=== PATIENT | female | born 1995 | race American Indian/Alaskan Native ===

== ENCOUNTER 2022-11-30 20:15 | Inpatient (IN) | payer MEDICAID, OTHER, SELFPAY ==
[2022-11-30] MEDS: OXYTOCIN 10 UNIT/ML VIAL IM (20:42)
--- NOTE | 2022-11-30 20:42 | PC.NURSE ---
Family of patient called back on red phone stating there was a medical emergency in the bathroom. This RN and HEALTH INFORMATION SYSTEMS TECHNICIAN went out to bathroom and found patient on toilet holding . Blood saturating the floor and patient, with weak cries in patient's arms. Asked mom if she caught baby, stated no, asked if baby landed in toilet, stated no, it landed on the floor. Stated that she was unaware she was . This RN took infant from patient, noted that umbilical cord was detached from mom, immediately applied direct pressure with fingers to umbilical cord that was bleeding. Handed infant to another RN who applied vigorous stimulation while provider maintained pressure to umbilical cord. Transferred patient into [facility] in the bathroom and moved to RM 1. Provider was present in bathroom and initially went with to RM 10 but then met patient and this RN in RM 1. Provider immediately assessed patient's bleeding. L&D nurse arrived to RM 1 to assist. Immediately started 18g in right AC. L&D nursed gave 10mg IM pitocin in left thigh, and additional 30mg 500ML bag running to gravity upon departure to L&D. Cord transferred via biohazard bag to L&D.
[2022-11-30] MEDS: OXYTOCIN PREMIX 30 UNIT/500 ML PLAST..BAG 999 UNIT IV (20:45)
--- NOTE | 2022-11-30 20:45 | ED.GENADULT ---
HPI - General Adult General Stated complaint: Thought constipated, Laxatives, Pain Time Seen by Provider: 11/30/22 20:44 Source: patient Mode of arrival: Ambulatory Limitations: no limitations History of Present Illness HPI narrative: Patient is a 27-year-old female who initially presented to the emergency department complaining of constipation. Prior to my evaluation I was called to the waiting room for an ?emergency? in the restroom. When I arrived found the patient sitting on the toilet. She would just given to a baby girl. Patient stated that she did not know that she was . My initial focus was on the baby and during this time the patient was brought back to the emergency department by nursing staff. HPI was very limited on this patient other than she has had no care. After she was stabilized and the placenta was delivered she was transported to labor and delivery. Review of Systems Gastrointestinal Gastrointestinal: Reports system reviewed and no additional complaints, except as documented Genitourinary Genitourinary: Reports system reviewed and no additional complaints, except as documented Exam Initial Vital Signs Initial Vital Signs: Vital Signs Pulse Rate 140 H 11/30/22 22:39 Blood Pressure 117/70 11/30/22 22:39 Const General: cooperative and No ill appearing HENMT Head: normal to inspection and normocephalic Resp Effort & Inspection: normal respiratory effort Other: Patient was having quite a bit bleeding and passage of clots from the vagina. There was no umbilical cord visualized so a manual exam was performed. I was able to grab a hold of a small part of the placenta and just provided some easy pressure while the patient pushed. An intact placenta was delivered. Fundal massage was started. Bleeding improved very quickly. Skin General: no rashes or lesions noted Neuro General: patient alert and patient awake Course Orders Ordered: Acetaminophen (Acetaminophen 325 Mg Tablet) 650 mg PO Q4H PRN PRN Reason: Fever/Mild Pain (1-3) Carboprost Tromethamine (Carboprost 250 Mcg/Ml Ampul) 250 mcg IM Q90MIN PRN PRN Reason: Bleeding Tranexamic Acid 1,000 mg/ (Sodium Chloride) 100 mls @ 200 mls/hr IV NOW PRN PRN Reason: Bleeding Oxytocin/Lactated Ringer's (Oxytocin Premix) 30 unit in 500 mls @ 200 mls/hr IV CONT PRN; Protocol PRN Reason: Bleeding Ampicillin Sodium/Sulbactam (Sodium 3 gm/ Sodium Chloride) 100 mls @ 200 mls/hr IV Q6H ANGELITO Lidocaine HCl (Lidocaine 2% (Glydo) 6 Ml Gel) 6 ml TOP NOW ONE Stop: 12/01/22 00:38 Methylergonovine Maleate (Methylergonovine 0.2 Mg/Ml Vial) 0.2 mg IM NOW PRN PRN Reason: Bleeding Methylergonovine Maleate (Methylergonovine 0.2 Mg Tablet) 0.2 mg PO Q6HR PRN PRN Reason: Heavy bleeding Misoprostol (Misoprostol 200 Mcg Tablet) 400 mcg SL NOW PRN PRN Reason: Bleeding Misoprostol (Misoprostol 200 Mcg Tablet) 1,000 mcg MO NOW PRN PRN Reason: Bleeding Misoprostol (Misoprostol 200 Mcg Tablet) 800 mcg MO NOW PRN PRN Reason: Bleeding Naloxone HCl (Naloxone 0.4 Mg/Ml Vial) 0.2 mg IV Q2MIN PRN PRN Reason: Opiate Reversal Oxytocin (Oxytocin 10 Unit/Ml Vial) 10 unit IM NOW PRN PRN Reason: Bleeding Rho Immune Globulin (Rho(D) Immune Globulin 1,500 Unit Syringe) 1,500 unit IM NOW PRN PRN Reason: Mom Rh neg, Infant Rh pos Discontinued Medications Diphtheria/Tetanus/Acell Pertussis (Tet,Diph,Pertuss(Acell),Vac/Pf 0.5 Ml Syringe) 0.5 ml IM .ONCE ONE Stop: 11/30/22 22:22 Measles/Mumps/Rubella Vaccine Live (Measles,Mumps,Rubella Vacc/Pf 0.5 Ml Vial) 0.5 ml SUBCUT .ONCE ONE Stop: 11/30/22 22:22 Medical Decision Making Lab Data 11/30/22 23:02 11/30/22 23:02 Labs: Lab Results 11/30/22 11/30/22 11/30/22 Range/Units 20:35 20:35 21:00 WBC 20.7 H (4.5-11.0) X10^3/uL RBC 4.19 (4.0-5.2) X10^6/uL Hgb 10.0 L (12.0-16.0) g/dL Hct 32.1 L (36-46) % MCV 76.7 L (80-100) fL MCH 23.9 L (26-34) PG MCHC 31.1 (30-36) % RDW 18.7 H (11.6-14.8) % Plt Count 306 (150-400) X10^3/uL Neut % (Auto) 83.5 H (50-75) % Lymph % (Auto) 12.6 L (25-40) % [place] % (Auto) 3.3 (3-14) % Eos % (Auto) 0.1 L (2-4) % Baso % (Auto) 0.5 (0-2) % Neut # (Auto) 48616 H (0516-7391) /uL Lymph # (Auto) 2600 (3500-9552) /uL [place] # (Auto) 700 (0-900) /uL Eos # (Auto) 0 (0-450) /uL Baso # (Auto) 100 (0-100) /uL Sodium 135 L (137-145) mmol/L Potassium 3.9 (3.4-5.1) mmol/L Chloride 106 (98-107) mmol/L Carbon Dioxide 23 (22-32) mmol/L BUN 9 (7-17) mg/dL Creatinine 0.89 (0.52-1.04) mg/dL Estimated GFR > 60 (>60) mL/min BUN/Creatinine Ratio 10.1 (6-22) Glucose 105 H (70-100) mg/dL Calcium 7.5 L (8.4-10.2) mg/dL Total Bilirubin 0.1 L (0.2-1.3) mg/dL AST 32 (14-36) IU/L ALT 20 (<35) IU/L Alkaline Phosphatase 242 H (38-126) U/L Total Protein 7.1 (6.3-8.2) g/dL Albumin 3.1 L (3.5-5.0) g/dL Globulin 4.0 (1.7-4.1) g/dL Albumin/Globulin Ratio 0.8 L (1.0-2.8) Group B Strep (PCR) Neg for grp b strep Blood Type Cancelled O Positive Antibody Screen Negative Crossmatch See Detail MDM Narrative Medical decision making narrative: Patient did deliver the baby in the waiting room bathroom. It appears she is not had any care. She stated that she did not know that she was . The placenta was delivered in the emergency department and appears to be intact. She was given 10 mg of IM Pitocin in the ER. Her bleeding did seem to improve. Labor and delivery staff was in the emergency department. IV was started and labs were obtained however the patient was transferred to labor and delivery prior to any lab results. I did discuss the case with Dr. Janice KOCH on-call however this was after she was transferred and after he had evaluated her. Discharge Plan Departure Patient Disposition: Admitted As Inpatient Clinical Impression: Admit Date/Time: 11/30/22 21:04 Admit Provider: Michael Camacho
[2022-11-30] MEDS: LACTATED RINGERS 1,000 ML 1000 ML IV (21:20)
--- NOTE | 2022-11-30 22:15 | PM.OBHP.1 ---
OB HPI Date/Time Date of admission: 11/30/22 Date Patient Seen: 11/30/22 Time Patient Seen: 20:40 History of Present Condition Chief complaint: Thought constipated, Laxatives, Pain : 1 Para: 1 Estimated Gestational Age (weeks): 34 Narrative: Sayda Arriaga is a 27 year old female Comments: Patient presented to emergency department this evening complaining of constipation. She went to the bathroom at which time she delivered a baby which struck the floor. At time of delivery the cord avulsed the nurse upon seeing this put pressure on the cord. The placenta spontaneously delivered in the emergency department. At that point she was transferred to labor and delivery. Patient has had no OB care. She thinks her last episode of sex was in March. However this is somewhat difficult in that she is already to a female and this is been very distressing to both of them. The rupture of membranes was undocumented. She felt poorly since yesterday and presented to the ED at the encouragement of her friends. Patient denies any headaches. She denies any contractions. Upon arriving to labor and delivery she notes the pain of 2/10. Indications Indication for induction OB: other (Patient has had no OB care. She is had no ultrasounds. She states that she did not know she was .) History of Present care: none Ultrasounds: none Obstetrical complications: other (Baby was estimated at 34 weeks this makes her a delivery.) Preadmission Labs -: Antibody screen: unknown, Cystic fibrosis screen: unknown, GBS status: unknown, HBsAG: unknown, HIV: unknown, HSV 1: unknown, HSV 2: unknown and RPR/VDLR: unknown Prior (ies) History: none PFSH Comment: Past medical history none Surgical history none Family history is positive for preeclampsia with the mother Social history: Patient has her which she is been with for the last 10 years. Patient denies any intercourse initially but admits to sex probably in March. OB Exam Vital signs Blood Pressure: 117/70 Pulse Rate: 140 Eyes General: appearance normal, both eyes and all related structures Resp Effort & Inspection: normal respiratory effort and able to speak in complete sentences Cardio Rate: regular rate Rhythm: regular rhythm Heart Sounds: S1 normal Extremities Lower extremity: Yes normal to inspection DTR's: Rt Patellar: 1+ and Lt Patellar: 1+ GI Palpation: Yes soft Auscultation: normal bowel sounds OB/External & Speculum: vulvar erythema Objective Labs 11/30/22 20:35 11/30/22 20:35 Assessment and Plan Assessment and Plan Assessment and Plan narrative: 27-year-old female with delivery in the ED with what appears to be 34 weeks. Estimated Blood at time of delivery is 1400 cc. This qualifies as hemorrhage. Foul smelling amniotic fluid suspect chorioamnionitis. We will start patient on Unasyn for 2 doses. Initial elevated blood pressure possibility of preeclampsia we will obtain PIH labs. Time Spent with Patient Total time spent with greater than 50% in coordination of care (as documented) at patient's floor/unit and/or counseling patient:: Greater than 35 minutes
[2022-11-30 22:18] LABS: Add Manual Diff / Slide Review NO; Alanine Aminotransferase 20 IU/L (<35); Albumin 3.1 g/dL (3.5-5.0); Albumin Globulin Ratio 0.8 (1.0-2.8); Alkaline Phosphatase 242 U/L (38-126); Aspartate Aminotransferase 32 IU/L (14-36); BUN Creatinine Ratio 10.1 (6-22); Basophils Absolute Auto 100 /uL (0-100); Basophils Percent Auto 0.5 % (0-2); Bilirubin Total 0.1 mg/dL (0.2-1.3); Blood Urea Nitrogen 9 mg/dL (7-17); Calcium 7.5 mg/dL (8.4-10.2); Carbon Dioxide 23 mmol/L (22-32); Chloride 106 mmol/L (98-107); Eosinophils Absolute Auto 0 /uL (0-450); Eosinophils Percent Auto 0.1 % (2-4); Estimated Glomerular Filt Rate > 60 mL/min (>60); Glucose 105 mg/dL (70-100); HEMOLYSIS < 15 (0-50); Hematocrit 32.1 % (36-46); Lymphocytes Absolute Auto 2600 /uL (1100-4500); Lymphocytes Percent Auto 12.6 % (25-40); Mean Corpuscular HGB Conc 31.1 % (30-36); Mean Corpuscular Hemoglobin 23.9 PG (26-34); Mean Corpuscular Volume 76.7 fL (80-100); Monocytes Absolute Auto 700 /uL (0-900); Monocytes Percent Auto 3.3 % (3-14); Neutrophils Absolute Auto 17300 /uL (1500-7000); Neutrophils Percent Auto 83.5 % (50-75); Platelet Count 306 X10^3/uL (150-400); Potassium 3.9 mmol/L (3.4-5.1); Red Blood Cell Count 4.19 X10^6/uL (4.0-5.2); Red Cell Distribution Width 18.7 % (11.6-14.8); Sodium 135 mmol/L (137-145); Total Protein 7.1 g/dL (6.3-8.2); White Blood Cell Count 20.7 X10^3/uL (4.5-11.0)
[2022-11-30] MEDS: LACTATED RINGERS 1,000 ML 100 ML IV (22:20)
[2022-11-30 22:21] VITALS: BP 147/67
[2022-11-30 22:39] VITALS: BP 117/70; PULSE 140
[2022-11-30 23:44] LABS: Aspartate Aminotransferase 27 IU/L (14-36); BUN Creatinine Ratio 10.2 (6-22); Blood Urea Nitrogen 10 mg/dL (7-17); Estimated Glomerular Filt Rate > 60 mL/min (>60)
[2022-11-30 23:49] LABS: Add Manual Diff / Slide Review NO; Basophils Absolute Auto 100 /uL (0-100); Basophils Percent Auto 0.5 % (0-2); Eosinophils Absolute Auto 0 /uL (0-450); Hematocrit 21.2 % (36-46); Lymphocytes Absolute Auto 1900 /uL (1100-4500); Lymphocytes Percent Auto 7.7 % (25-40); Mean Corpuscular HGB Conc 31.9 % (30-36); Mean Corpuscular Hemoglobin 24.2 PG (26-34); Monocytes Absolute Auto 1200 /uL (0-900); Monocytes Percent Auto 4.7 % (3-14); Neutrophils Absolute Auto 21200 /uL (1500-7000); Neutrophils Percent Auto 87.1 % (50-75); Platelet Count 287 X10^3/uL (150-400); Red Blood Cell Count 2.79 X10^6/uL (4.0-5.2); Red Cell Distribution Width 18.5 % (11.6-14.8); White Blood Cell Count 24.4 X10^3/uL (4.5-11.0)
[2022-12-01 00:01] LABS: Hemoglobin 6.8 g/dL (12.0-16.0)
[2022-12-01 00:27] VITALS: BP 144/75; PULSE 126; RESP 18; TEMP 36.5
[2022-12-01 00:28] LABS: Hepatitis B Surface Antigen NEGATIVE s/c (NEGATIVE)
[2022-12-01 00:29] LABS: Rubella Antibody IgG 0.3 IU/mL (>15)
[2022-12-01 00:35] LABS: Strep Grp B PCR NEG for Grp B Strep
[2022-12-01 00:37] LABS: HIV 1 & 2 Ab/Ag 4th Gen Combo NEGATIVE (NEGATIVE)
[2022-12-01 00:45] VITALS: BP 115/81; PULSE 127; RESP 20; TEMP 36.6
--- NOTE | 2022-12-01 00:48 | PC.NURSE ---
Report given to GHAZAL Hemphill. Patient resting on stretcher, vitals trending. Blood transfusing at 250mL/hr.
[2022-12-01] MEDS: ACETAMINOPHEN 325 MG TABLET 650 MG PO ×2 (01:55→13:24)
[2022-12-01 02:14] VITALS: BP 121/88; PULSE 113; RESP 17; TEMP 35.9
[2022-12-01 02:15] VITALS: BP 121/88; PULSE 113; RESP 17; TEMP 35.9
[2022-12-01] MEDS: AMPICILLIN/SULBACTAM 3 GM 3 GM in SODIUM CHLORIDE 0.9% 100 ML IV ×4 (02:23→19:51)
[2022-12-01 02:31] VITALS: BP 125/86; PULSE 102; RESP 17; TEMP 36.4
[2022-12-01 03:12] LABS: Creatinine Urine Random 226.3 mg/dL
[2022-12-01 03:21] LABS: Protein (Total) Urine Random 546 mg/dL (0-12); Protein Creatinine Ratio Urine 2.41 GRAM/24H
[2022-12-01 03:38] LABS: UR Morphine/Opiate cutoff 300 Negative (Negative); Ur Creatinine 50 (Normal); Ur Specific Gravity <1.030 (Normal); Urine Amphetamines Positive (Negative); Urine Barbiturates Negative (Negative); Urine Benzodiazepines Negative (Negative); Urine Cocaine Negative (Negative); Urine MDMA Negative (Negative); Urine Methadone Negative (Negative); Urine Methamphetamines Positive (Negative); Urine Oxycodone Negative (Negative); Urine Phencyclidine Negative (Negative); Urine Tetrahydrocannabinol Positive (Negative); Urine Tricyclic Antidepressant Negative (Negative); Urine pH 5 (Normal)
[2022-12-01 04:26] LABS: Urine N gonorrhoeae NOT DETECTED
[2022-12-01 04:27] LABS: Urine Chlamydia NOT DETECTED
[2022-12-01 06:11] LABS: Hemoglobin A1C% w Est Avg Glu 5.2 % (4.0-6.0)
--- NOTE | 2022-12-01 10:10 | P.PNOB_ITS ---
Subjective - OB Subjective Patient comments: no complaints (Patient states she would like to go home. At this point I discouraged it because she has endometritis she is had anemia with symptoms significant enough to require transfusion.) and pain well controlled (Patient states her pain is 5/10 hours she had to be awakened. When offered pain medication she declined it at this time.) Narrative: Infant is being transferred out because of concerns prematurity as well as possible drug withdrawal. Date Patient Seen: 12/01/22 Time Patient Seen: 10:12 Exam Vital Signs (past 8 hours): - 12/01/22 02:14 12/01/22 02:15 12/01/22 02:31 Temperature 96.7 F L 96.7 F L 97.5 F L Pulse Rate 113 H 113 H 102 H Respiratory Rate 17 17 17 Blood Pressure 121/88 121/88 125/86 Const General: cooperative, healthy appearing and comfortable HENMT Head: normal to inspection Eyes General: appearance normal, both eyes and all related structures Resp Effort & Inspection: normal respiratory effort and able to speak in complete sentences Auscultation: clear to auscultation bilaterally Cardio Palpation: normal PMI Rate: regular rate Rhythm: regular rhythm Heart Sounds: S1 normal and S2 normal GI Palpation: soft (Uterus is palpated at the umbilicus it is minimally tender at this time. ) and other Back/Spine/Pelvis Back: back tenderness (No CVA tenderness was elicited) Neuro General: patient alert and patient awake DTR's: Rt Patellar: 1+ (No clonusclonus) and Lt Patellar: 1+ Objective Labs 12/01/22 10:15 11/30/22 23:02 Labs: Laboratory Results - last 24 hr 11/30/22 11/30/22 11/30/22 20:35 20:35 21:00 WBC 20.7 H RBC 4.19 Hgb 10.0 L Hct 32.1 L MCV 76.7 L MCH 23.9 L MCHC 31.1 RDW 18.7 H Plt Count 306 Neut % (Auto) 83.5 H Lymph % (Auto) 12.6 L [place] % (Auto) 3.3 Eos % (Auto) 0.1 L Baso % (Auto) 0.5 Neut # (Auto) 54015 H Lymph # (Auto) 2600 [place] # (Auto) 700 Eos # (Auto) 0 Baso # (Auto) 100 Sodium 135 L Potassium 3.9 Chloride 106 Carbon Dioxide 23 BUN 9 Creatinine 0.89 Estimated GFR > 60 BUN/Creatinine Ratio 10.1 Glucose 105 H Hemoglobin A1c Uric Acid Calcium 7.5 L Total Bilirubin 0.1 L AST 32 ALT 20 Alkaline Phosphatase 242 H Total Protein 7.1 Albumin 3.1 L Globulin 4.0 Albumin/Globulin Ratio 0.8 L U Random Total Protein Urine Creatinine Protein/Creatinin Ratio U Opiates 300ng/mL cut Ur Oxycodone Screen Urine Methadone Screen Ur Barbiturates Screen U Tricyclic Antidepress Ur Phencyclidine Scrn Ur Amphetamines Screen U Methamphetamines Scrn Ur MDMA Scrn (Ecstasy) U Benzodiazepines Scrn Urine Cocaine Screen U Marijuana (THC) Screen Ur Chlamydia DNA (PCR) Hep Bs Antigen HIV 1&2 Ab/P24 Ag 4thGn Rubella Antibody Group B Strep (PCR) Neg for grp b strep N gonorrhoeae DNA (PCR) Blood Type Cancelled O Positive Antibody Screen Negative Crossmatch See Detail 11/30/22 12/01/22 23:02 02:14 WBC 24.4 H RBC 2.79 L Hgb 6.8 L* Hct 21.2 L MCV 76.0 L MCH 24.2 L MCHC 31.9 RDW 18.5 H Plt Count 287 Neut % (Auto) 87.1 H Lymph % (Auto) 7.7 L [place] % (Auto) 4.7 Eos % (Auto) 0.0 L Baso % (Auto) 0.5 Neut # (Auto) 23146 H Lymph # (Auto) 1900 [place] # (Auto) 1200 H Eos # (Auto) 0 Baso # (Auto) 100 Sodium Potassium Chloride Carbon Dioxide BUN 10 Creatinine 0.98 Estimated GFR > 60 BUN/Creatinine Ratio 10.2 Glucose Hemoglobin A1c 5.2 Uric Acid 7.0 H Calcium Total Bilirubin AST 27 ALT Alkaline Phosphatase Total Protein Albumin Globulin Albumin/Globulin Ratio U Random Total Protein 546 H Urine Creatinine 226.3 Protein/Creatinin Ratio 2.41 U Opiates 300ng/mL cut Negative Ur Oxycodone Screen Negative Urine Methadone Screen Negative Ur Barbiturates Screen Negative U Tricyclic Antidepress Negative Ur Phencyclidine Scrn Negative Ur Amphetamines Screen Positive H U Methamphetamines Scrn Positive H Ur MDMA Scrn (Ecstasy) Negative U Benzodiazepines Scrn Negative Urine Cocaine Screen Negative U Marijuana (THC) Screen Positive H Ur Chlamydia DNA (PCR) Not detected Hep Bs Antigen Negative HIV 1&2 Ab/P24 Ag 4thGn Negative Rubella Antibody 0.3 L Group B Strep (PCR) N gonorrhoeae DNA (PCR) Not detected Blood Type Antibody Screen Crossmatch Assessment & Plan Plan day: 1 Comments: 1. Premature delivery at 34 weeks. Because of complications the is being transferred out. 2. Amphetamine use. This could have explained the tachycardia she experienced yesterday. However she did drop her hemoglobin to 6.8 and had lightheadedness well standing. 3. hemorrhage. Her QBL was noted to be roughly 1800 cc. She had a tachycardia as well as being lightheaded whenever standing. For this reason she received 2 units of packed red blood cells. We will be obtaining a CBC to evaluate her blood count. Repeat CBC showed a white count in the 16,000 her hemoglobin had risen to 8.9 4. endomyometritis. Because of foul-smelling amniotic fluid as well as as well as no OB care it was elected to place her on Unasyn. Her white count indeed was initially 20,000 and increased to 24,000. We will await the CBC. We will complete 20 4 hours of Unasyn. 5. Methamphetamine use. Landscape Management Technician are involved. 6. possible preeclampsia. There is a family history of preeclampsia. Her initial blood pressure is 160 over 90s however these have normalized to 120s over 70s. Her initial protein creatinine ratio which was contaminated was high at 2 point 4 will repeat protein creatinine ratio to see if this is just factitious. Repeat urine protein creatinine ratio was 0.47. She is had some episodes of elevated diastolic pressures. She received a single dose of IV labetalol and her diastolics have normalized. 7. Patient would like to go home I have encouraged her to stay here because of her complexity need for antibiotics as well as monitor post transfusion. Time Spent With Patient Time: Total time spent is greater than 50% in coordination of care (as documented) at patient's floor/unit and/or counseling patient: Time with patient: less than 15 minutes
[2022-12-01 10:23] LABS: Add Manual Diff / Slide Review NO; Basophils Absolute Auto 100 /uL (0-100); Basophils Percent Auto 0.4 % (0-2); Eosinophils Absolute Auto 0 /uL (0-450); Eosinophils Percent Auto 0.3 % (2-4); Hematocrit 27.3 % (36-46); Hemoglobin 8.9 g/dL (12.0-16.0); Lymphocytes Absolute Auto 1800 /uL (1100-4500); Lymphocytes Percent Auto 10.9 % (25-40); Mean Corpuscular HGB Conc 32.7 % (30-36); Mean Corpuscular Hemoglobin 26.6 PG (26-34); Mean Corpuscular Volume 81.4 fL (80-100); Monocytes Absolute Auto 700 /uL (0-900); Monocytes Percent Auto 4.4 % (3-14); Neutrophils Absolute Auto 13700 /uL (1500-7000); Platelet Count 211 X10^3/uL (150-400); Red Blood Cell Count 3.36 X10^6/uL (4.0-5.2); Red Cell Distribution Width 20.2 % (11.6-14.8); White Blood Cell Count 16.3 X10^3/uL (4.5-11.0)
[2022-12-01 10:49] LABS: Creatinine Urine Random 48.9 mg/dL; Protein (Total) Urine Random 23 mg/dL (0-12); Protein Creatinine Ratio Urine 0.47 GRAM/24H
[2022-12-01 11:58] LABS: Anisocytosis 1+
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
[2022-12-01 13:17] VITALS: BP 136/106; PULSE 113
[2022-12-01] MEDS: LABETALOL 20 MG/4 ML SYRINGE 10 MG IV (13:17)
[2022-12-01] MEDS: LACTATED RINGERS 1,000 ML 100 ML IV (17:34)
[2022-12-02 04:24] LABS: RPR Screen Non Reactive (Non Reactive)
[2022-12-02 06:59] LABS: Basophils Absolute Auto 0 /uL (0-100); Basophils Percent Auto 0.3 % (0-2); Eosinophils Absolute Auto 100 /uL (0-450); Eosinophils Percent Auto 0.9 % (2-4); Hematocrit 25.1 % (36-46); Hemoglobin 8.2 g/dL (12.0-16.0); Lymphocytes Absolute Auto 1800 /uL (1100-4500); Lymphocytes Percent Auto 14.7 % (25-40); Mean Corpuscular HGB Conc 32.8 % (30-36); Mean Corpuscular Hemoglobin 26.5 PG (26-34); Mean Corpuscular Volume 80.9 fL (80-100); Monocytes Absolute Auto 600 /uL (0-900); Monocytes Percent Auto 5.2 % (3-14); Neutrophils Absolute Auto 9500 /uL (1500-7000); Neutrophils Percent Auto 78.9 % (50-75); Platelet Count 249 X10^3/uL (150-400); Red Cell Distribution Width 20.4 % (11.6-14.8); White Blood Cell Count 12.1 X10^3/uL (4.5-11.0)
[2022-12-02 07:26] LABS: Add Manual Diff / Slide Review SLIDE REVIEW
[2022-12-02 07:28] LABS: Anisocytosis 1+
[2022-12-02] MEDS: IRON SUCROSE 200 MG in SODIUM CHLORIDE 0.9% 100 ML 220 MG IV (10:18)
[2022-12-02] MEDS: ACETAMINOPHEN 325 MG TABLET 650 MG PO (10:26)
[2022-12-02 11:26] LABS: Creatinine Urine Random 19.1 mg/dL; Protein (Total) Urine Random 17 mg/dL (0-12); Protein Creatinine Ratio Urine 0.89 GRAM/24H
--- NOTE | 2022-12-02 11:32 | P.PNOB_ITS ---
Subjective - OB Subjective Patient comments: no complaints (Patient is very interested in getting out the hospitalist soon as possible. She states her pain is 0/10. She denies any headaches or scotoma.) Date Patient Seen: 12/02/22 Time Patient Seen: 11:32 Exam Const General: cooperative, healthy appearing, well developed and well groomed Nutritional Appearance: average body habitus Eyes General: appearance normal, both eyes and all related structures GI Palpation: soft and mass (Uterus is palpated roughly 3 fingerbreadths below the umbilicus. It is non) Neuro General: patient alert, patient awake and patient oriented x3 Objective Labs 12/02/22 06:10 11/30/22 23:02 Labs: Laboratory Results - last 24 hr 11/30/22 12/01/22 12/02/22 23:02 10:15 06:10 WBC 12.1 H RBC 3.10 L Hgb 8.2 L Hct 25.1 L MCV 80.9 MCH 26.5 MCHC 32.8 RDW 20.4 H Plt Count 249 Neut % (Auto) 78.9 H Lymph % (Auto) 14.7 L [place] % (Auto) 5.2 Eos % (Auto) 0.9 L Baso % (Auto) 0.3 Neut # (Auto) 9500 H Lymph # (Auto) 1800 [place] # (Auto) 600 Eos # (Auto) 100 Baso # (Auto) 0 RBC Morphology See below See below Anisocytosis 1+ H 1+ H Serum VDRL Non reactive Assessment & Plan Assessment and Plan (1) hemorrhage: Status: Acute Assessment and plan: Patient recovering well from her vaginal delivery. Her pain is minimal at this time. Her bleeding has normalized. Patient received 2 units of packed RBCs. She is also received a dose of inferior on. This should help to normalize her anemia. (2) Preeclampsia: Start date: 12/01/22 Status: Acute Assessment and plan: Patient has a maternal history for preeclampsia. Her blood pressures have for the most part normalize with the exception of the diastolic. These have been above 100. She is responded well to labetalol. Her protein creatinine ratio is normalizing at this time. She shows no other chemistry abnormalities. Her platelets are normal. We will start patient on metoprolol 25 mg twice daily we will send her home with a prescription. We have discussed the issues of headache spots from the rise or increased swelling. (3) Endomyometritis: Start date: 12/01/22 Status: Acute Assessment and plan: Patient time of delivery had foul smelling amniotic fluid. Because she delivered in the emergency room as well as had no OB care and had no group B strep done it was elected to put her on Unasyn. This was run for 24 hours. Her white count has resolved from being at 8:42 p.m. 1000 max and is now currently 12,000. Her uterus is nontender also. Plan day: 2 plan OB: discharge home Time Spent With Patient Time: Total time spent is greater than 50% in coordination of care (as documented) at patient's floor/unit and/or counseling patient: Time with patient: Greater than 35 minutes
--- NOTE | 2022-12-02 11:39 | P.DS_ITS ---
Discharge Providers Provider Date of admission: 11/30/22 21:04 Discharge Date: 12/02/22 Consults: 12/01/22 01:22 Consult to [employer] - Kick [employer]er Routine Comment: pt with No care complex social situation [employer] Consult needed for:: Social Determinants issue 12/01/22 22:21 Consult to [employer] Interface Developer Routine Comment: Discharge provider: Michael Camacho MD Summary Hospital Course Date Patient Seen: 11/30/22 Time Patient Seen: 21:25 Discharge Diagnosis (1) hemorrhage: Start Date: 11/30/22 Start Time: 21:00 Status: Acute Problem Details: Patient had an EBL of roughly 1800 cc. Her initial hemoglobin hematocrit was roughly 10 this fell to 6.8. Because this is an acute value it was select and she developed tachycardia in the 150s as well as orthostasis it was elected to transfuse her with 2 units of blood. Her hemoglobin today is roughly 8.2 she is also received inferior on. (2) Preeclampsia: Start Date: 11/30/22 Start Time: 22:00 Status: Acute Problem Details: Patient initially had blood pressures in the 140s over 90s range. She had an initial protein creatinine ratio done which was roughly 24 however this was felt to possibly be contaminants a cath specimen the next day was 0.4 at this point the diagnosis of preeclampsia was made and because she was had no hyperreflexia or visual changes it was elected to treat her with labetalol solely. Her pressures normalized quite quickly however today her diastolics are running in the 100s for this reason we are restarting on metoprolol 25 mg twice daily. It has been expressed to her that she start this as soon as possible. Told her of the danger signs to look out for. (3) Endomyometritis: Start Date: 11/30/22 Start Time: 11:44 Status: Acute Problem Details: Because of no OB care and foul-smelling vaginal discharge elected to start her on Unasyn which she got for 24 hours for uterine tenderness as well as white count had normalized. Status at Discharge Cognitive/behavioral status at discharge: oriented Functional status at discharge: independent ambulation Overall status at discharge: patient is progressing back to baseline Time Spent with Patient Time attestation: Total time spent providing and/or coordinating discharge services: Time spent: Greater than 30 minutes Objective Labs 12/02/22 06:10 11/30/22 23:02 Labs: Laboratory Results - last 24 hr 11/30/22 12/01/22 12/02/22 23:02 10:15 06:10 WBC 12.1 H RBC 3.10 L Hgb 8.2 L Hct 25.1 L MCV 80.9 MCH 26.5 MCHC 32.8 RDW 20.4 H Plt Count 249 Neut % (Auto) 78.9 H Lymph % (Auto) 14.7 L Trinity % (Auto) 5.2 Eos % (Auto) 0.9 L Baso % (Auto) 0.3 Neut # (Auto) 9500 H Lymph # (Auto) 1800 Trinity # (Auto) 600 Eos # (Auto) 100 Baso # (Auto) 0 RBC Morphology See below See below Anisocytosis 1+ H 1+ H Serum VDRL Non reactive Exam Const General: cooperative, healthy appearing and well developed Orientation: alert, awake and oriented x3 Eyes General: appearance normal, both eyes and all related structures GI Palpation: soft and mass (Uterus is 3 fingerbreadths below the umbilicus and is nontender.) Discharge Plan Discharge Plan Patient Disposition: Home Provider Discharge Comment: Patient was instructed to call the clinic on Saturday for follow-up appointment for blood pressure as well as routine care. Discharge orders & Medications Prescriptions: No Action No Known Home Medications Diet/Activity/Treatments Diet: Regular Skin/Wound/Dressing Care Report to your healthcare provider any signs of infection, such as:: chills, fever, night sweats, increased pain and unusual drainage Visit Report/Discharge Packet Stand Alone Forms: Patient Portal/API, Stroke Signs & Symptoms Discharge Data Attending Provider: Michael Camacho Admit Date/Time: 11/30/22 21:04 Discharges patient from system. Discharge Date/Time: 12/02/22 11:48
[2022-12-02] MEDS: MEASLES,MUMPS,RUBELLA VACC/PF 0.5 ML VIAL SUBCUT (11:45)
[2022-12-02 12:02] VITALS: BP 126/85; PULSE 79; RESP 17; TEMP 36.7
[2022-12-02] MEDS: METOPROLOL IR 25 MG TABLET PO (12:02)
--- NOTE | 2022-12-03 11:15 | CM.SWNOTE ---
[facility] if a [facility] report had been made regarding MOB lack of care as she was unaware of the and positive UDS. [facility] states baby girl Bart is still at their hospital receiving medical care and awaiting CPS involvement regarding safe discharge plan. JT faxed the notes from [facility] assessment and CPS report intake number and clinicals to Klarissa at [facility] to fax [phone] towards reaching out to CPS for ongoing safety planning. JOSE ANTONIO Garcia
[2022-12-05 01:14] LABS: Chlamydia trachomatis Negative (Negative); Mycoplasma genitalium Negative (Negative); Neisseria gonorrhoeae Negative (Negative)
== END 2022-12-02 12:15 | disposition home or self-care (01) | DRG 805 ==
LOC: ED 20:45 → LABOR 20:53 → ED 21:04 → LABOR 12-01 13:10
PROVIDERS: Admitting Provider Obstetrics & Gynecology; Emergency Provider Emergency Medicine; Visit Provider Obstetrics & Gynecology
DX: O62.3 Precipitate labor (principal); O60.14X0 Preterm labor third trimester with preterm delivery third trimester, not applicable or unspecified; Z37.0 Single live birth; O72.1 Other immediate postpartum hemorrhage; D62 Acute posthemorrhagic anemia; O86.12 Endometritis following delivery; O99.324 Drug use complicating childbirth; O90.81 Anemia of the puerperium; O14.94 Unspecified pre-eclampsia, complicating childbirth; F12.90 Cannabis use, unspecified, uncomplicated; F15.10 Other stimulant abuse, uncomplicated; Z3A.34 34 weeks gestation of pregnancy
CPT/HCPCS: 36415; 36430; 80053; 80055; 80305; 82565; 82570; 83036; 84156; 84450; 84520; 84550; 85025; 86850; 86900; 86901; 87389; 87491; 87591; 99222; 99231; 99238; G0378; P9016; J0295; J1756; J2590

== ENCOUNTER → 2023-02-04 13:47 | Outpatient (CLI) | payer MEDICAID, OTHER, SELFPAY ==
[2023-02-06 15:57] LABS: Candida species Negative (Negative); Gardnerella vaginalis Positive (Negative); Trichomoas vaginalis Negative (Negative)
== END ==
PROVIDERS: Visit Provider Physician Assistant Medical
DX: N89.8 Other specified noninflammatory disorders of vagina (principal); O14.90 Unspecified pre-eclampsia, unspecified trimester
CPT/HCPCS: 87480; 87510; 87660